=== PATIENT | female | born 1935 | race Two or more races ===

== ENCOUNTER 2022-05-22 11:19 | Inpatient (IN) | payer OTHER ==
[~2022-05-22] VITALS: Ht 167.6 cm; Wt 77.1 kg
[~2022-05-22 11:19] MED LIST: CARDIZEM CD300 MG PO; COUMADIN4 MG PO; DIOVAN40 MG PO; FOLIC + B12 TAB1 TAB PO; FOSAMAX5 MG PO; HALCION0.125 MG PO; TRANXENE T-TA3.75 MG PO
[2022-05-22] MEDS ORDERED: ALPRAZOLAM1 MG PO (11:50)
[2022-05-22] MEDS ORDERED: XARELTO20 MG (11:53)
== END 2022-05-31 23:11 | disposition home or self-care (01) | DRG 444 ==
LOC: ER 11:19 → SEC-K 20:13 → MEDJ 20:13 → SURG 05-31 08:30
PROVIDERS: Internal Medicine Gastroenterology; Radiology Vascular & Interventional Radiology; ADMIT Internal Medicine; ATTEND Internal Medicine
PROC: B24BZZZ Ultrasonography of Heart with Aorta (ICD-10-PCS; 2022-05-27)
PROC: 0DB98ZX Excision of Duodenum, Via Natural or Artificial Opening Endoscopic, Diagnostic (ICD-10-PCS; principal; 2022-05-30 07:00)
PROC: 0F9930Z Drainage of Common Bile Duct with Drainage Device, Percutaneous Approach (ICD-10-PCS; 2022-05-31)
DX: K80.51 Calculus of bile duct without cholangitis or cholecystitis with obstruction (principal); K85.90 Acute pancreatitis without necrosis or infection, unspecified; N17.8 Other acute kidney failure; N39.0 Urinary tract infection, site not specified; K29.80 Duodenitis without bleeding; I48.91 Unspecified atrial fibrillation; E87.6 Hypokalemia; K83.8 Other specified diseases of biliary tract; Z20.822 Contact with and (suspected) exposure to COVID-19; Z95.0 Presence of cardiac pacemaker; F03.90 Unspecified dementia, unspecified severity, without behavioral disturbance, psychotic disturbance, mood disturbance, and anxiety; I11.0 Hypertensive heart disease with heart failure; I50.9 Heart failure, unspecified